=== PATIENT | male | born 1980 | race Caucasian/White ===

== ENCOUNTER → 2017-09-11 | Outpatient (CLI) | payer OTHER ==
[2017-09-11 11:35] LABS: Cholesterol 273 mg/dL (<200); HDL Cholesterol 37 mg/dL (40-60); Triglycerides 437 mg/dL (<150)
== END | disposition home or self-care (01) ==
LOC: LABWHC1 10:10
PROVIDERS: ATTEND Internal Medicine Clinical Cardiac Electrophysiology
DX: E78.01 Familial hypercholesterolemia (principal)
CPT/HCPCS: 36415; 80061